=== PATIENT | male | born 1960 | race Caucasian/White ===

== ENCOUNTER 2017-09-19 14:04 | Observation (INO) | payer OTHER ==
[2017-09-19] MEDS ORDERED: Sodium Chloride 0.9% 10 ML Syringe FLUSH PRN (14:32)
[2017-09-19] MEDS ORDERED: Alum Hydrox/Mag Hydrox/Simeth 30 ML, Lidocaine 2% 15 ML PO ONE ×2 (15:09)
--- NOTE | 2017-09-19 15:09 | EDM.PDOC ---
ED HPI GENERAL MEDICAL PROBLEM - General Chief Complaint: Chest Pain Stated Complaint: CP Time Seen by Provider: 09/19/17 14:24 Source of Information: Reports: Patient, RN Notes Reviewed - History of Present Illness INITIAL COMMENTS - FREE TEXT/NARRATIVE: 57-year-old male comes in with onset of right-sided chest discomfort about one hour ago. He describes this as a burning and mild achy type sensation of the right anterior chest without radiation. He comes he does have a strong cardiac history of 7 prior stands over quite a few years he felt he does come in and get this checked out. He denies any history of recent GE reflux type problems. He states that "went away after his gastric bypass surgery about 9 years ago. No abdominal pain nausea or vomiting. No recent cough fever chills or difficulty breathing. Chest Pain Score (Numeric/FACES): 0 - Related Data Allergies Allergy/AdvReac Type Severity Reaction Status Date / Time zolpidem [From Ambien] Allergy Other Verified 09/19/17 14:11 ED ROS GENERAL - Review of Systems Review Of Systems: See Below Constitutional: Denies: Fever, Chills, Diaphoresis HEENT: Denies: Throat Pain Respiratory: Denies: Shortness of Breath Cardiovascular: Reports: Chest Pain GI/Abdominal: Denies: Abdominal Pain, Nausea, Vomiting Musculoskeletal: Denies: Neck Pain, Shoulder Pain, Arm Pain, Back Pain, Leg Pain Skin: Reports: No Symptoms Neurological: Denies: Dizziness, Numbness, Tingling ED EXAM, GENERAL - Physical Exam Exam: See Below General Appearance: Alert, No Apparent Distress Eye Exam: Bilateral Eye: PERRL Throat/Mouth: Normal Inspection, Normal Oropharynx Head: Atraumatic. No: Facial Swelling Neck: Supple, Full Range of Motion Respiratory/Chest: No Respiratory Distress, Lungs Clear, Normal Breath Sounds, Chest Non-Tender Cardiovascular: Regular Rate, Rhythm GI/Abdominal: Soft, Non-Tender Back Exam: No: CVA Tenderness (L), CVA Tenderness (R) Extremities: Normal Inspection. No: Pedal Edema, Leg Pain Neurological: Alert, Oriented, No Motor/Sensory Deficits Skin Exam: Warm, Dry, Normal Color EKG INTERPRETATION EKG Date: 09/19/17 Rhythm: NSR P-Wave: Present QRS: Other (Q waves present inferior leads, low voltage inferior leads) ST-T: Normal Course - Vital Signs Last Recorded V/S: Last Vital Signs Temp 97.6 F 09/19/17 14:11 Pulse 83 09/19/17 14:11 Resp 16 09/19/17 14:11 BP 167/68 H 09/19/17 14:11 Pulse Ox 99 09/19/17 14:11 - Orders/Labs/Meds Orders: Active Orders 24 hr Category Date Time Status EKG 12 Lead [EKG Documentation Completion] [RC] STAT Care 09/19/17 14:11 Active Peripheral IV Care [RC] . DIRECTED Care 09/19/17 14:32 Active Chest 1V Frontal [CR] Stat Exams 09/19/17 14:32 Taken Sodium Chloride 0.9% [Saline Flush] Med 09/19/17 14:32 Active 10 ml FLUSH ASDIRECTED PRN Peripheral IV Insertion Adult [OM.PC] Stat Oth 09/19/17 14:32 Ordered Medication Orders Sodium Chloride (Saline Flush) 10 ml FLUSH ASDIRECTED PRN PRN Reason: Keep Vein Open Last Admin: 09/19/17 15:06 Dose: 10 ml Labs: Laboratory Tests 09/19/17 09/19/17 09/19/17 Range/Units 15:05 15:05 17:05 WBC 5.90 (4.23-9.07) K/mm3 RBC 4.76 (4.63-6.08) M/mm3 Hgb 14.9 (13.7-17.5) gm/L Hct 45.1 (40.1-51.0) % MCV 94.7 H (79.0-92.2) fl MCH 31.3 (25.7-32.2) pg MCHC 33.0 (32.2-35.5) g/dl RDW Std Deviation 45.3 H (35.1-43.9) fL Plt Count 154 L (163-337) K/mm3 MPV 10.4 (9.4-12.3) fl Neut % (Auto) 68.5 H (34.0-67.9) % Lymph % (Auto) 19.0 L (21.8-53.1) % Dickenson % (Auto) 12.0 (5.3-12.2) % Eos % (Auto) 0.3 L (0.8-7.0) Baso % (Auto) 0.0 L (0.1-1.2) % Neut # (Auto) 4.04 (1.78-5.38) K/mm3 Lymph # (Auto) 1.12 L (1.32-3.57) K/mm3 [place]enson # (Auto) 0.71 (0.30-0.82) K/mm3 Eos # (Auto) 0.02 L (0.04-0.54) K/mm3 Baso # (Auto) 0.00 L (0.01-0.08) K/mm3 Sodium 143 (136-145) mEq/L Potassium 4.1 (3.5-5.1) mEq/L Chloride 104 (98-107) mEq/L Carbon Dioxide 30 (21-32) mEq/L Anion Gap 13.1 (5-15) BUN 15 (7-18) mg/dL Creatinine 1.1 (0.7-1.3) mg/dL Est Cr Clr Drug Dosing 81.72 mL/min Estimated GFR (MDRD) > 60 (>60) mL/min BUN/Creatinine Ratio 13.6 L (14-18) Glucose 210 H (74-106) mg/dL Calcium 9.5 (8.5-10.1) mg/dL Total Bilirubin 0.6 (0.2-1.0) mg/dL AST 29 (15-37) U/L ALT 33 (16-63) U/L Alkaline Phosphatase 82 (46-116) U/L Troponin I < 0.017 < 0.017 (0.00-0.056) ng/mL Total Protein 7.6 (6.4-8.2) g/dl Albumin 3.9 (3.4-5.0) g/dl Globulin 3.7 gm/dL Albumin/Globulin Ratio 1.1 (1-2) Meds: Medications Generic Name Dose Route Start Last Admin Trade Name Freq PRN Reason Stop Dose Admin Sodium Chloride 10 ml 09/19/17 14:32 09/19/17 15:06 Saline Flush FLUSH 10 ml ASDIRECTED PRN Administration Keep Vein Open Discontinued Medications Generic Name Dose Route Start Last Admin Trade Name Freq PRN Reason Stop Dose Admin Al Hydroxide/Mg Hydroxide 30 0 ml 09/19/17 15:09 09/19/17 15:26 ml/ Lidocaine HCl 15 ml PO 09/19/17 15:10 45 ml ONETIME ONE Administration - Re-Assessments/Exams Free Text/Narrative Re-Assessment/Exam: 09/19/17 19:30. First troponin was negative and second 3 hour troponin also negative. When it did become time for discharge short time ago patient became very nervous with that. Even though his discomfort today is atypical for cardiac he states the discomfort that he had leading up to his prior angioplasties was somewhat similar to what he is been feeling and experiencing today. He is most concerned that living in [place] he is about 190 miles from Cardiology in [place] and even a bit further from Cardiology in [place]. I did call [place] to see if his Sculpture Instructor Dr. Timmons was available for consultation and he was professional services specialist. He suggests that even though this doesn't sound or look as strong probability for cardiac etiology that we do admit him tonight for serial troponins, start proton pump inhibitor treatment and then if he does rule out for [place] he states one of their staff could see him tomorrow at [facility] outpatient prior to him going back home to [place]. He states that he can be called in the morning open set up that appointment. I discussed this with our hospitalist who has agreed to this plan. He will be admitted observation status. Departure - Departure Time of Disposition: 19:15 Disposition: Admitted As Inpatient 64 Condition: Fair Clinical Impression: Atypical chest pain Referrals: PCP,Not In Area [Primary Care Provider] - Forms: ED Department Discharge ED Communication - Discussed Case With (1) Discussed Case With (1): Admitting Provider (Dr. Booker, decision to admit at about 19:15) - My Orders Last 24 Hours: My Active Orders 09/19/17 14:11 EKG 12 Lead [EKG Documentation Completion] [RC] STAT 09/19/17 14:32 Peripheral IV Care [RC] . DIRECTED Chest 1V Frontal [CR] Stat Sodium Chloride 0.9% [Saline Flush] 10 ml FLUSH ASDIRECTED PRN Peripheral IV Insertion Adult [OM.PC] Stat - Assessment/Plan Last 24 Hours: My Active Orders 09/19/17 14:11 EKG 12 Lead [EKG Documentation Completion] [RC] STAT 09/19/17 14:32 Peripheral IV Care [RC] . DIRECTED Chest 1V Frontal [CR] Stat Sodium Chloride 0.9% [Saline Flush] 10 ml FLUSH ASDIRECTED PRN Peripheral IV Insertion Adult [OM.PC] Stat
--- NOTE | 2017-09-19 20:28 | PCM.HP ---
H&P History of Present Illness - General Date of Service: 09/19/17 Source of Information: Patient, Provider History Limitations: Reports: No Limitations - History of Present Illness Initial Comments - Free Text/Narative: 57 year old male with atypical CP with history of CAD with PCI. He recently was seen at the [facility] for reportedly a post op visit. The patient describes his discomfort as a burning sensation; he denies SOB, diaphoresis, orthopnea, or PND. Patient will be admitted as discussed with Dr Denson who spoke to the patient's sheep clipper, Dr Devin Portillo. Observation with telemetry for evaluation of persistent CP with a history of CAD/PCI. Cardiac history PCI to RCA with subsequent ISRS with POBA, 06/2016; PCI to LAD , 2012. Stress test/echo results are unknown. Onset of Symptoms: Reports: Sudden Symptom Onset Date: 09/19/17 Duration of Symptoms: Reports: Hour(s):, Getting Worse Location: Reports: Chest, Abdomen Severity: Moderate Improves with: Reports: Medication Worsens with: Reports: None Chest Pain Score (Numeric/FACES): 0 - Related Data Allergies/Adverse Reactions: Allergies Allergy/AdvReac Type Severity Reaction Status Date / Time zolpidem [From Ambien] Allergy Other Verified 09/19/17 21:31 Home Medications: Home Meds Aspirin [Halfprin] 81 mg PO BRK 09/20/17 [History] Calcium Citrate 200 mg PO DAILY 09/20/17 [History] Isosorbide Mononitrate [Isosorbide Mononitrate ER] 30 mg PO DAILY 09/20/17 [ History] Lisinopril 10 mg PO DAILY 09/20/17 [History] Metoprolol Tartrate 25 mg PO DAILY 09/20/17 [History] Metoprolol Tartrate 50 mg PO DAILY 09/20/17 [History] Nitroglycerin [Nitrostat] 0.4 mg SL Q5M 09/20/17 [History] Prasugrel HCl [Effient] 10 mg PO DAILY 09/20/17 [History] #103/Iron Fumarate/Fa [ ] 1 tab PO DAILY 09/20/17 [ History] QUEtiapine Fumarate [Quetiapine Fumarate] 100 mg PO BEDTIME 09/20/17 [History] Rosuvastatin Calcium 20 mg PO DAILY 09/20/17 [History] Venlafaxine HCl [Venlafaxine HCl ER] 75 mg PO DAILY 09/20/17 [History] Past Medical History HEENT History: Reports: Impaired Vision Other HEENT History: wears corrective lenses Cardiovascular History: Reports: Hypertension, Stents Gastrointestinal History: Reports: GERD - Past Surgical History Cardiovascular Surgical History: Reports: Coronary Artery Stent GI Surgical History: Reports: Appendectomy, Bariatric Procedure Musculoskeletal Surgical History: Reports: Arthroscopic Knee, Carpal Tunnel, Shoulder Surgery, Other (See Below) (neck C5-C6 fused) Social & Family History - Tobacco Use Smoking Status *Q: Never Smoker Second Hand Smoke Exposure: No - Caffeine Use Caffeine Use: Reports: Coffee - Recreational Drug Use Recreational Drug Use: No H&P Review of Systems - Review of Systems: Review Of Systems: See Below General: Reports: No Symptoms HEENT: Reports: No Symptoms Pulmonary: Reports: No Symptoms Cardiovascular: Reports: Chest Pain Gastrointestinal: Reports: Abdominal Pain (epigastric) Genitourinary: Reports: No Symptoms Musculoskeletal: Reports: No Symptoms Skin: Reports: No Symptoms Psychiatric: Reports: No Symptoms Neurological: Reports: No Symptoms Hematologic/Lymphatic: Reports: No Symptoms Immunologic: Reports: No Symptoms Exam - Exam Exam: See Below - Vital Signs Vital Signs: Last Vital Signs Temp 36.4 C 09/19/17 14:11 Pulse 83 09/19/17 14:11 Resp 16 09/19/17 14:11 BP 167/68 H 09/19/17 14:11 Pulse Ox 99 09/19/17 14:11 Weight: 115.666 kg - Exam Quality Assessment: Supplemental Oxygen, DVT Prophylaxis General: Alert, Oriented, Cooperative HEENT: Nares Patent, Normal Nasal Septum, Pupils Equal, Pupils Reactive Neck: Supple, Trachea Midline Lungs: Normal Respiratory Effort Cardiovascular: Regular Rate, Regular Rhythm GI/Abdominal Exam: Normal Bowel Sounds, Soft, Non-Tender, No Organomegaly, No Distention (Male) Exam: Deferred Rectal (Males) Exam: Deferred Back Exam: Normal Inspection Extremities: Normal Inspection Skin: Warm, Dry Neurological: Cranial Nerves Intact, Reflexes Equal Bilateral, Normal Gait Neuro Extensive - Mental Status: Alert, Oriented x3, Normal Mood/Affect, Normal Cognition, Memory Intact Neuro Extensive - Motor, Sensory, Reflexes: CN II-XII Intact Psychiatric: Alert, Normal Affect, Normal Mood - Patient Data Result Diagrams: 09/20/17 06:00 09/20/17 06:00 *Q Meaningful Use (ADM) - VTE *Q VTE Criteria *Q: - Stroke *Q Stroke Criteria *Q: - AMI *Q AMI Criteria *Q: - Problem List (1) CAD (coronary artery disease) SNOMED Code(s): 11338860 ICD Code: I25.10 - ATHSCL HEART DISEASE OF [place] CORONARY ARTERY W/O ANG PCTRS Status: Acute Current Visit: Yes (2) History of angioplasty SNOMED Code(s): 318344705 ICD Code: Z98.62 - PERIPHERAL VASCULAR ANGIOPLASTY STATUS Status: Acute Current Visit: Yes (3) Hypertension SNOMED Code(s): 97488065 ICD Code: I10 - ESSENTIAL (PRIMARY) HYPERTENSION Status: Acute Current Visit: Yes (4) Hyperlipidemia SNOMED Code(s): 06696290 ICD Code: E78.5 - HYPERLIPIDEMIA, UNSPECIFIED Status: Acute Current Visit : Yes (5) GERD (gastroesophageal reflux disease) SNOMED Code(s): 564947694 ICD Code: K21.9 - GASTRO-ESOPHAGEAL REFLUX DISEASE WITHOUT ESOPHAGITIS Status: Acute Current Visit: Yes (6) Atypical chest pain SNOMED Code(s): 945341301 ICD Code: R07.89 - OTHER CHEST PAIN Status: Acute Current Visit: Yes Problem List Initiated/Reviewed/Updated: Yes Orders Last 24hrs: Medication Orders Sodium Chloride (Saline Flush) 10 ml FLUSH ASDIRECTED PRN PRN Reason: Keep Vein Open Last Admin: 09/19/17 15:06 Dose: 10 ml Assessment/Plan Comment:: Impression: Atypical CP with history of CAD/PCI History of gastric bypass surgery Carpel tunnel syndrome with recent release of RUE wrist Chronic HTN HLD Tobacco abuse/dependence Plan: OBS telemetry admission TnI/telemetry per CP protocol Home meds if able to obtain list Daily lab DC in am as previously discussed with sheep clipper of [facility] Dr Espinoza. Will be seen as an add on appointment.
[2017-09-19] MEDS ORDERED: Simethicone 80 MG Tab.Chew PO PRN (20:32)
[2017-09-19] MEDS ORDERED: Nitroglycerin 0.4 MG Tab.SL SL PRN (20:34)
[2017-09-19] MEDS ORDERED: hydrALAZINE 20 MG/ML SDV IVPUSH PRN (20:37)
[2017-09-19] MEDS ORDERED: Clopidogrel 75 MG Tab PO ONE (21:22)
[2017-09-19] MEDS: Metoprolol Tartrate 25 MG Tab PO SCH ×2 (21:25→21:53)
[2017-09-19] MEDS: Simvastatin 20 MG Tab PO SCH ×2 (21:25→21:51)
[2017-09-19] MEDS: amLODIPine 10 MG Tab PO SCH ×2 (21:25→21:51)
[2017-09-19] MEDS ORDERED: QUEtiapine 25 MG Tab PO ONE (21:30)
[2017-09-20] MEDS ORDERED: Pantoprazole 40 MG Tab.CR PO SCH (06:00)
--- NOTE | 2017-09-20 07:48 | CR ---
Chest: Portable view of the chest is obtained. Comparison: No prior study. Left-sided coronary stent appears to be present. Heart size is normal. Upper mediastinum is normal. Previous cervical spine surgery is seen. Lungs are clear. Degenerative endplate spurring is noted within the spine. Impression: 1. Nothing acute is identified on portable chest x-ray. Diagnostic code #2
[2017-09-20] MEDS ORDERED: Isosorbide Mononitrate 30 MG Tab.ER PO SCH (09:00)
[2017-09-20] MEDS ORDERED: Aspirin 81 MG Tab.EC PO SCH (09:00)
[2017-09-20] MEDS: Metoprolol Tartrate 25 MG Tab PO SCH (09:36)
--- NOTE | 2017-09-20 14:02 | PCM.DCSUM1 ---
Discharge Summary - Hospital Course Free Text/Narrative:: 57 year old male with atypical CP with PMH of CAD, was admitted for CP treatment and cardiac assessment. He had three negative enzymes, he was discharged for follow up in [facility]. Primary Dx Atypical CP CAD Activity No Strenuous Activity Disposition Home Follow up [facility] at 1400 hour, 09/20/17 Meds Home meds Diet Usual diet Instructions Stop smoking - Discharge Data Discharge Date: 09/20/17 Discharge Disposition: Home, Self-Care 01 Condition: Good - Patient Instructions Diet: Usual Diet as Tolerated Activity: No Strenuous Activities Driving: Do Not Drive Showering/Bathing: March Shower Notify Provider of: Increased Pain - Discharge Plan Home Medications: Home Meds Aspirin [Halfprin] 81 mg PO BRK 09/20/17 [History] Calcium Citrate 200 mg PO DAILY 09/20/17 [History] Isosorbide Mononitrate [Isosorbide Mononitrate ER] 30 mg PO DAILY 09/20/17 [ History] Lisinopril 10 mg PO DAILY 09/20/17 [History] Metoprolol Tartrate 25 mg PO DAILY 09/20/17 [History] Metoprolol Tartrate 50 mg PO DAILY 09/20/17 [History] Nitroglycerin [Nitrostat] 0.4 mg SL Q5M 09/20/17 [History] Prasugrel HCl [Effient] 10 mg PO DAILY 09/20/17 [History] #103/Iron Fumarate/Fa [ ] 1 tab PO DAILY 09/20/17 [ History] QUEtiapine Fumarate [Quetiapine Fumarate] 100 mg PO BEDTIME 09/20/17 [History] Rosuvastatin Calcium 20 mg PO DAILY 09/20/17 [History] Venlafaxine HCl [Venlafaxine HCl ER] 75 mg PO DAILY 09/20/17 [History] Patient Handouts: Heartburn, [id number], Nonspecific Chest Pain, [id number] , Chest Pain Observation, Angina Pectoris, [id number] Forms: ED Department Discharge Referrals: Laura Danielle PA-C [Ordering Only Provider] - 09/20/17 2:00 pm (Dr Timmons's practitioner for cardiology. Appointment is in Central Standard Time.) PCP,Not In Area [Primary Care Provider] - (Follow-up with primary care provider as needed.) - Discharge Summary/Plan Comment DC Time >30 min.: No - General Info Date of Service: 09/19/17 Functional Status: Reports: Tolerating Diet, Ambulating, Urinating - Review of Systems General: Reports: No Symptoms HEENT: Reports: No Symptoms Pulmonary: Reports: No Symptoms Cardiovascular: Reports: No Symptoms Gastrointestinal: Reports: No Symptoms Genitourinary: Reports: No Symptoms Musculoskeletal: Reports: No Symptoms Skin: Reports: No Symptoms Neurological: Reports: No Symptoms Psychiatric: Reports: No Symptoms - Patient Data Vitals - Most Recent: Last Vital Signs Temp 36.7 C 09/20/17 09:34 Pulse 79 09/20/17 09:36 Resp 18 09/20/17 09:34 BP 136/71 09/20/17 09:37 Pulse Ox 93 L 09/20/17 09:34 Weight - Most Recent: 115.666 kg I&O - Last 24 hours: Intake & Output 09/19/17 09/20/17 09/20/17 22:59 06:59 14:59 Intake Total 500 100 Balance 500 100 Lab Results - Last 24 hrs: Laboratory Results - last 24 hr 09/19/17 09/20/17 09/20/17 Range/Units 22:09 06:00 06:00 WBC 5.11 (4.23-9.07) K/mm3 RBC 4.40 L (4.63-6.08) M/mm3 Hgb 13.8 (13.7-17.5) gm/L Hct 42.1 (40.1-51.0) % MCV 95.7 H (79.0-92.2) fl MCH 31.4 (25.7-32.2) pg MCHC 32.8 (32.2-35.5) g/dl RDW Std Deviation 45.0 H (35.1-43.9) fL Plt Count 151 L (163-337) K/mm3 MPV 11.3 (9.4-12.3) fl Neut % (Auto) 59.3 (34.0-67.9) % Lymph % (Auto) 28.0 (21.8-53.1) % [place] % (Auto) 11.7 (5.3-12.2) % Eos % (Auto) 1.0 (0.8-7.0) Baso % (Auto) 0.0 L (0.1-1.2) % Neut # (Auto) 3.03 (1.78-5.38) K/mm3 Lymph # (Auto) 1.43 (1.32-3.57) K/mm3 [place] # (Auto) 0.60 (0.30-0.82) K/mm3 Eos # (Auto) 0.05 (0.04-0.54) K/mm3 Baso # (Auto) 0.00 L (0.01-0.08) K/mm3 Sodium 141 (136-145) mEq/L Potassium 3.7 (3.5-5.1) mEq/L Chloride 104 (98-107) mEq/L Carbon Dioxide 28 (21-32) mEq/L Anion Gap 12.7 (5-15) BUN 17 (7-18) mg/dL Creatinine 0.7 (0.7-1.3) mg/dL Est Cr Clr Drug Dosing 128.41 mL/min Estimated GFR (MDRD) > 60 (>60) mL/min BUN/Creatinine Ratio 24.3 H (14-18) Glucose 120 H (74-106) mg/dL Calcium 8.6 (8.5-10.1) mg/dL Troponin I < 0.017 (0.00-0.056) ng/mL Triglycerides 83 (<150) mg/dL Cholesterol 192 (<200) mg/dL LDL Cholesterol Direct 90 (<100) mg/dL HDL Cholesterol 86.0 H (40-59) mg/dL Med Orders - Current: Current Medications Amlodipine Besylate (Norvasc) 10 mg PO BEDTIME [facility] Last Admin: 09/19/17 21:51 Dose: 10 mg Aspirin (Halfprin) 81 mg PO DAILY [facility] Last Admin: 09/20/17 09:36 Dose: 81 mg Hydralazine HCl (Apresoline) 10 mg IVPUSH Q6H PRN PRN Reason: Chest Pain Isosorbide Mononitrate (Imdur) 15 mg PO DAILY [facility] Last Admin: 09/20/17 09:37 Dose: 15 mg Metoprolol Tartrate (Lopressor) 25 mg PO Q12HR [facility] Last Admin: 09/20/17 09:36 Dose: 25 mg Nitroglycerin (Nitrostat) 0.4 mg SL Q5M PRN PRN Reason: Chest Pain Pantoprazole Sodium (Protonix) 40 mg PO BIDAC [facility] Last Admin: 09/20/17 09:36 Dose: 40 mg Simethicone (Simethicone) 80 mg PO Q6H PRN PRN Reason: Heartburn Simvastatin (Zocor) 20 mg PO BEDTIME [facility] Last Admin: 09/19/17 21:51 Dose: 20 mg Sodium Chloride (Saline Flush) 10 ml FLUSH ASDIRECTED PRN PRN Reason: Keep Vein Open Last Admin: 09/19/17 15:06 Dose: 10 ml Discontinued Medications Clopidogrel Bisulfate (Plavix) 75 mg PO ONETIME ONE Stop: 09/19/17 21:23 Last Admin: 09/19/17 21:51 Dose: 75 mg Al Hydroxide/Mg Hydroxide 30 (ml/ Lidocaine HCl 15 ml) 0 ml PO ONETIME ONE Stop: 09/19/17 15:10 Last Admin: 09/19/17 15:26 Dose: 45 ml Quetiapine Fumarate (Seroquel) 50 mg PO ONETIME ONE Stop: 09/19/17 21:31 Last Admin: 09/19/17 22:44 Dose: 50 mg - Exam Quality Assessment: Reports: DVT Prophylaxis General: Reports: Alert, Oriented, Cooperative, No Acute Distress HEENT: Reports: Pupils Equal, Pupils Reactive, EOMI Neck: Reports: Supple, Trachea Midline Lungs: Reports: Normal Respiratory Effort Cardiovascular: Reports: Regular Rate, Regular Rhythm GI/Abdominal Exam: Normal Bowel Sounds, Soft, Non-Tender, No Organomegaly, No Distention (Male) Exam: Deferred Rectal (Males) Exam: Deferred Back Exam: Reports: Normal Inspection Extremities: Normal Inspection Skin: Reports: Warm Neurological: Reports: No New Focal Deficit Psy/Mental Status: Reports: Alert, Normal Affect, Normal Mood *Q Meaningful Use (DIS) - VTE *Q VTE Criteria *Q: - Stroke *Q Stroke Criteria *Q: - AMI *Q AMI Criteria *Q:
== END 2017-09-20 10:32 | disposition home or self-care (01) ==
LOC: JD.ED 14:04 → JD.MS 20:13
PROVIDERS: ADMIT Internal Medicine Cardiovascular Disease; ATTEND Internal Medicine Cardiovascular Disease
DX: R07.89 Other chest pain (principal); I25.10 Atherosclerotic heart disease of native coronary artery without angina pectoris; I10 Essential (primary) hypertension; Z79.82 Long term (current) use of aspirin; E78.5 Hyperlipidemia, unspecified; K21.9 Gastro-esophageal reflux disease without esophagitis; Z79.899 Other long term (current) drug therapy; Z79.02 Long term (current) use of antithrombotics/antiplatelets; Z88.8 Allergy status to other drugs, medicaments and biological substances; Z95.5 Presence of coronary angioplasty implant and graft; Z98.84 Bariatric surgery status; Z90.49 Acquired absence of other specified parts of digestive tract
CPT/HCPCS: 36415; 71010; 80048; 80053; 80061; 84484; 85025; 93005; 99285; A9270; G0378; J7050; 93010